=== PATIENT | female | born 1925 | race Caucasian/White ===

== ENCOUNTER 2016-09-26 00:09 | Emergency (ER) | payer MEDICARE ==
[~2016-09-26] VITALS: Ht 160 cm; Wt 56.0 kg
[~2016-09-26 00:09] MED LIST: ASPI1TAB7 PO; PRED50TA PO; ZETI10TA5 PO
[2016-09-26 00:13] VITALS: BP 162/82; PULSE 98; RESP 15; TEMP 97.8; O2SAT 97
[2016-09-26] MEDS ORDERED: MULT-135 PO (00:26)
[2016-09-26] MEDS ORDERED: ASPI325T PO (00:26)
[2016-09-26] MEDS ORDERED: ACETAMINOPHEN/HYDROcodone 325 MG/5 MG TAB PO ONE ×2 (00:45→01:30)
--- NOTE | 2016-09-26 01:10 | RADRPT ---
EXAM DATE/TIME: 09/26/2016 00:53 [facility] COMPARISON: TIBIA/FIBULA RIGHT (AP/LAT), September 26, 2016, 0:54. INDICATIONS : Patient fell today landing on right lower leg. Complains of right ankle pain. MEDICAL HISTORY : None. SURGICAL HISTORY : None. ENCOUNTER: Initial ACUITY: 1 day PAIN SCORE: 8/10 LOCATION: Right Ankle FINDINGS: There is soft tissue swelling at the lateral aspect of the ankle and decreased bone mineralization is noted. The ankle mortise is approximated. No obvious fracture lucencies. CONCLUSION: Decreased bone mineralization. No obvious fractures. Lacho Silvestre MD on September 26, 2016 at 1:08 Board Certified Radiologist. This report was verified electronically.
--- NOTE | 2016-09-26 01:11 | RADRPT ---
EXAM DATE/TIME: 09/26/2016 00:54 [facility] COMPARISON: ANKLE RIGHT COMPLETE ([id number]), September 26, 2016, 0:53. INDICATIONS : Patient fell today landing on right lower leg. Complains of right lower leg pain. MEDICAL HISTORY : None. SURGICAL HISTORY : None. ENCOUNTER: Initial ACUITY: 1 day PAIN SCORE: 8/10 LOCATION: Right middle Tib/Fib FINDINGS: The bone density is decreased. There is osteoarthritis of the knee. Soft tissue swelling at the later al aspect of the ankle. I do not see a fracture. CONCLUSION: 1. Soft tissue swelling at the ankle laterally without definite fracture. Lacho Silvestre MD on September 26, 2016 at 1:09 Board Certified Radiologist. This report was verified electronically.
[2016-09-26] MEDS ORDERED: HYDR-3533 PO (01:25)
--- NOTE | 2016-09-26 01:25 | PD ---
HPI Chief Complaint: Injury Time Seen by Provider: 00:44 Travel History International Travel<30 days: No Contact w/Intl Traveler<30days: No Traveled to known affect area: No History of Present Illness HPI 89-year-old with right ankle pain after trip and fall earlier today. She can bear weight but it hurts. Pains are on the lateral ankle and up into the calf. No previous injuries. No other complaints. History Past Medical History Medical History: Denies Significant Hx PNEUMOCCOCAL Vaccine (Year): 2 Menopausal: Yes Social History Alcohol Use: Yes (1 DRINK NIGHTLY) Tobacco Use: No Allergies-Medications (Allergen,Severity, Reaction): Coded Allergies: Cipro (Verified Allergy, Severe, 09/26/16) Hydrocodone (Verified Allergy, Severe, Nausea/Vomiting, 09/26/16) Hydrocortisone (Verified Allergy, Severe, 09/26/16) Levaquin (Verified Allergy, Severe, 09/26/16) Lipitor (Verified Allergy, Severe, 09/26/16) Nitrofurantoin (Verified Allergy, Severe, 09/26/16) Sulfa (Verified Allergy, Severe, RASH, 09/26/16) Zocor (Verified Allergy, Severe, 09/26/16) Reported Meds & Prescriptions Reported Meds & Active Scripts Active Reported Multi Vitamin (Multiple Vitamin) 1 Tab Tab 1 Tab PO DAILY Aspirin 325 Mg Tab 325 Mg PO DAILY takes 1/2 asa Review of Systems Except as stated in HPI: all other systems reviewed are Neg Physical Exam Narrative GENERAL: Well-appearing 89 year-old woman, no acute distress. SKIN: Warm and dry. CARDIOVASCULAR: Warm and well perfused. RESPIRATORY: Normal rate and effort. MUSCULOSKELETAL: Focused examination of the right lower extremity reveals diffuse swelling about the ankle. There is some ecchymosis. More on the lateral ankle. Good pulses. Diffuse tenderness. Good range of motion very little bit of pain up the calf. NEUROLOGICAL: Awake and alert. No gross deficits. Data Data Last Documented VS Vital Signs Date Time Temp Pulse Resp B/P Pulse Ox O2 Delivery O2 Flow Rate FiO2 09/26/16 00:22 Room Air 09/26/16 00:13 97.8 98 15 162/82 97 Orders Ankle, Complete ([id number]) (09/26/16 ) Tibia/Fibula (Ap/Lat) (09/26/16 ) Acetamin-Hydrocod 325-5 Mg ([place] 5-325 (09/26/16 00:45) MDM Medical Decision Making Medical Screen Exam Complete: Yes Emergency Medical Condition: Yes Interpretation(s) X-ray right tib-fib, x-ray right ankle negative for fracture Differential Diagnosis Fracture, strain, sprain, other Narrative Course Medical decision making Right ankle injury, x-ray negative. Treated for sprain. Repeat x-ray persistent symptoms. Diagnosis Primary Impression: Right ankle pain Qualified Code: M25.571 - Acute right ankle pain Additional Instructions: Weight-bear as tolerated. Use crutches as needed for comfort. Keep leg elevated as much as possible to reduce swelling. Follow up with her primary doctor in 3-5 days for repeat evaluation. Return to the emergency room for any worsening pain, numbness, tingling, weakness. Med/Other Pt SpecificInfo: Prescription(s) given Scripts Hydrocodone-Acetaminophen (Lortab)5-325 Mg Tab1-2 Tab PO Q6H PRN (PAIN) #12 TAB Prov:Fox Pike MD 09/26/16 Disposition: 01 DISCHARGE HOME Condition: Stable Fox Pike MD Sep 26, 2016 01:25
[2016-09-26 02:26] VITALS: RESP 18
== END 2016-09-26 02:27 | disposition home or self-care (01) ==
LOC: NEPC 00:09
DX: M25.571 Pain in right ankle and joints of right foot (principal); W01.0XXA Fall on same level from slipping, tripping and stumbling without subsequent striking against object, initial encounter
CPT/HCPCS: 73590; 73610; 99283; E0113; L1906